=== PATIENT | male | born 1955 | race Caucasian/White ===

== ENCOUNTER 2023-05-03 19:38 | Emergency (ER) | payer OTHER, SELFPAY ==
[2023-05-03 20:16] VITALS: BP 171/93; PULSE 73; RESP 16; TEMP 36.6; O2SAT 100
--- NOTE | 2023-05-03 21:57 | ED.EXTPRO ---
HPI - Extremity Problem General Chief complaint: Extremity Problem,Nontraumatic Stated complaint: leg infection Time Seen by Provider: 05/03/23 21:25 History of Present Illness HPI Narrative: patient presents the emergency department with concern for cellulitis of his left lower extremity. He sustained a traumatic injury to the left lower extremity 40 years ago from a steel accident. He has a pin in place. Decreased blood flow chronically as result. He hit his leg on a grandchild bike peg 2 weeks ago. Resulting in persistent drainage around the old wound site. He notes leg was very erythematous and swollen. He kept it elevated. He is concerned because it has not healed yet. No current yellowish drainage. Beefy granulation tissue noted that he is concerned about her reassured that it is normal. Denies history of peripheral vascular disease or diabetic neuropathy. Strong pulse present Related Data Allergies Allergy/AdvReac Type Severity Reaction Status Date / Time codeine Allergy Nausea and Verified 05/03/23 21:44 Vomiting Review of Systems Review of Systems: review of systems negative except as documented in HPI Exam Narrative: GENERAL: Well-appearing, well-nourished, and in no acute distress. HEAD: Normocephalic, atraumatic. EYES: EOMI. ENT: Nares clear, no rhinorrhea or epistaxis. Mucous membranes moist. NECK: Supple. CHEST: . No respiratory distress. HEART: Regular rate and rhythm. ABDOMEN: not evaluated EXTREMITIES: Normal range of motion. No edema. SKIN: Warm, dry, no rash. granulation tissue left lower extremity without signs of cellulitis, no warmth no streaking NEURO: No focal deficits. Alert and oriented x3. PSYCH: Normal mood and affect. Course Vital Signs Vital signs: Vital Signs Temperature 36.6 C 05/03/23 20:16 Pulse Rate 73 05/03/23 20:16 Respiratory Rate 16 05/03/23 20:16 Blood Pressure 171/93 H 05/03/23 20:16 Pulse Oximetry 100 05/03/23 20:16 Oxygen Delivery Room Air 05/03/23 20:16 Temperature 36.6 C 05/03/23 20:16 Pulse Rate 73 05/03/23 20:16 Respiratory Rate 16 05/03/23 20:16 Blood Pressure 171/93 H 05/03/23 20:16 Pulse Oximetry 100 05/03/23 20:16 Oxygen Delivery Room Air 05/03/23 20:16 Discharge Plan Discharge Clinical Impression: Cellulitis Qualifiers: Site of cellulitis: extremity Site of cellulitis of extremity: lower extremity Laterality: left Qualified Code(s): L03.116 - Cellulitis of left lower limb Patient Disposition: Home, Self-Care Condition: Stable Instructions: Antibiotic Form, Cellulitis (ED), Chronic Wounds (ED) Additional Instructions: keep leg elevated as much as possible keep wound clean antibiotic ointment twice a day finished doxycycline follow-up with your primary care provider to ensure full wound healing Prescriptions: New doxycycline monohydrate 100 mg capsule 100 mg PO BID Qty: 14 0RF Follow-up/Referrals: PHYSICIAN NOT ON STAFF,NONSTAFF [Primary Care Provider] - Time of Disposition: 22:01
[2023-05-03] MEDS: DOXYCYCLINE HYCLATE 100 MG TABLET PO (22:11)
[2023-05-03 22:16] VITALS: BP 186/112; PULSE 99; RESP 16; TEMP 36.4; O2SAT 98
== END 2023-05-03 22:17 | disposition home or self-care (01) ==
PROVIDERS: Emergency Provider Emergency Medicine
DX: L03.116 Cellulitis of left lower limb (principal)
CPT/HCPCS: 99283; A9270

== ENCOUNTER 2024-07-21 11:17 | Outpatient (CLI) | payer OTHER, SELFPAY ==
[2024-07-21 11:44] LABS: Hematocrit 43.5 % (42.0-52.0); Hemoglobin 14.5 g/dL (14.0-18.0); Mean Corpuscular HGB Conc 33.3 g/dl (32-36); Mean Corpuscular Hemoglobin 29.4 pg (26-34); Mean Corpuscular Volume 88.1 fl (80-100); Platelet Count Result 152 k/mm3 (150-375); Red Blood Count 4.94 M/mm3 (4.6-6.20); Red Cell Distribution Width 12.2 % (11.5-14.5); White Blood Count 5.4 K/mm3 (4.5-10.0)
[2024-07-21 12:15] LABS: Alanine Aminotransferase 61 U/L (6-50); Alkaline Phosphatase 80 U/L (38-126); Anion Gap 7 mmol/L (4-12); Aspartate Amino Transferase 44 U/L (17-59); Bilirubin,Total 0.8 mg/dL (0.2-1.3); Blood Urea Nitrogen 14 mg/dL (9-20); Calcium 8.9 mg/dL (8.4-10.2); Carbon Dioxide 29 mmol/L (22-30); Chloride 102 mmol/L (98-107); Cholesterol 136 mg/dL (0-200); Estimated Glomerular Filt Rate > 60; Glucose 112 mg/dL (65-110); HDL Direct 61 mg/dL; Sodium 138 mmol/L (137-145); Triglycerides 74 mg/dL (<150)
[2024-07-21 12:26] LABS: LDL Cholesterol Direct 47 mg/dL
[2024-07-21 12:45] LABS: Prostate Specific Antigen 1.2 ng/mL (< OR = 4.0)
== END 2024-07-21 11:18 | disposition home or self-care (01) ==
LOC: ANHLAB 11:20
PROVIDERS: PCP Nurse Practitioner; Visit Provider Nurse Practitioner
DX: Z12.5 Encounter for screening for malignant neoplasm of prostate (principal); I10 Essential (primary) hypertension
CPT/HCPCS: 36415; 80053; 80061; 84153; 85027; G0103

== ENCOUNTER 2024-12-27 20:13 | Emergency (ER) | payer OTHER, MEDICAID, SELFPAY ==
--- NOTE | ~2024-12-27 | XR_ITS ---
HISTORY: edema to middle and lateral side COMPARISON: None TECHNIQUE: 2 views of the left tibia and fibula were performed FINDINGS: No acute or subacute fracture. Medial tibiofemoral joint space narrowing is present, incompletely evaluated. Fixation hardware within the distal tibia. Evidence of prior fracture deformity within the distal tibia and fibula with bony remodeling. Soft tissues are markedly edematous without radiopaque foreign body or significant calcification. IMPRESSION: Significant soft tissue swelling, without acute fracture or dislocation within the left tibia and fib enrique, as detailed above. Reviewed, dictated and finalized at location A. IMPRESSION: Significant soft tissue swelling, without acute fracture or dislocation within the left tibia and fibula, as detailed above.
--- NOTE | ~2024-12-27 | US_ITS ---
EXAMINATION: US venous doppler [facility] DATE: 12/27/2024 21:41 INDICATION: Edema and discoloration TECHNIQUE: Grayscale ultrasound images without and with compression and Doppler ultrasound images of the left lower extremity veins were obtained. COMPARISON: None. FINDINGS: The visualized portions of left common femoral vein, profunda (deep) femoral vein, femoral vein, popl iteal vein, peroneal veins, posterior tibial veins, and greater saphenous vein outflow are patent. IMPRESSION: 1. No deep venous thrombosis. Reviewed, dictated and finalized at location A.
[2024-12-27 20:46] VITALS: BP 155/66; PULSE 67; RESP 16; TEMP 36.8; O2SAT 99
[2024-12-27 22:29] VITALS: BP 150/77; PULSE 63; RESP 18; O2SAT 98
[2024-12-28] VITALS: BP 146/74; PULSE 64; RESP 18; O2SAT 100
--- NOTE | 2024-12-28 01:14 | ED_ITS ---
HPI - Extremity Problem General Chief complaint: Extremity Problem,Nontraumatic Stated complaint: edema left leg Time Seen by Provider: 12/28/24 00:48 Source: patient Mode of arrival: ambulatory Limitations: no limitations History of Present Illness HPI Narrative: Patient presents with concern for left lower leg edema for the past 2 weeks. He has a previous injury/accident that he sustained at work in 1979 that left him with hardware and in general his leg discolored and malformed. He states he previously wore compression stockings around the time of though surgeries but does not routinely wear them since. Denies being on anticoagulation or aspirin although he does take blood pressure medication. He notes that because of his injury he tends to favor his right foot. He states that there are no paresthesias and he only really has pain if he is on it for fair amount of time in which case it is not necessarily a pain only that it gets tight.Has not taken any pain medications. Denies any fevers or chills. No shortness of breath. Says he has bad circulation but denies having evaluation for this or seeing vascular surgeon or having a diagnosis of peripheral vascular disease/peripheral arterial disease, etc.. Confirms his primary care provider is Rogelio Phillip. Related Data Allergies Allergy/AdvReac Type Severity Reaction Status Date / Time codeine Allergy Nausea and Verified 12/27/24 20:46 Vomiting PMF Past Medical History Medical History Essential hypertension BMI 40.0-44.9, adult Surgical History Surgical History History of tonsillectomy History of surgery on lower extremity Social History Social History Smoking status: Never smoker Second hand tobacco smoke exposure: Yes Alcohol intake: former Substance use: never Substance use type: does not use Do You Feel Safe in your Home?: Yes Lack of Transportation: No Lack of Food: Never True Current Housing: I Have Housing Concerned About Future Housing: No Difficulty Paying Gas/Electric Bills: No Difficulty Paying for Meds: No Currently Unemployed: No Education: High School Diploma/GED Difficulty w/ Childcare or Family Care: No Living arrangements: alone Occupation/Education: occupation 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 Gender identity (if verbalized by the patient): Male Exam 2 Narrative: GENERAL: Well-appearing, well-nourished, and in no acute distress. HEAD: Normocephalic, atraumatic. EYES: Non injected, non icteric ENT: Nares clear, no rhinorrhea or epistaxis. Gross auditory acuity intact. NECK: Supple. No meningismus. CHEST: Speaking in full sentences. No respiratory distress. HEART: Regular rate and rhythm. Strong palpable left DP pulse. ABDOMEN: Soft, nondistended. EXTREMITIES: Normal range of motion. Lower extremity edema throughout the calf/vigil. Patient has significant amount superficial artery his and varicose veins present throughout bilateral feet. Evidence of venous stasis particularly on bilateral anterior shins. Left anteromedial lower extremity is markedly disfigured postsurgically but without evidence of erythema or induration. No drainage. SKIN: Warm, dry NEURO: No focal deficits. Alert and oriented. Answering questions. Following commands. Normal speech without aphasia or dysarthria. 5/5 strength with dorsiflexion plantar flexion. PSYCH: Normal mood and affect. Course Vital Signs Vital signs: Vital Signs Temperature 98.2 F 12/27/24 20:46 Pulse Rate 67 12/27/24 20:46 Respiratory Rate 16 12/27/24 20:46 Blood Pressure 155/66 H 12/27/24 20:46 Pulse Oximetry 99 12/27/24 20:46 Oxygen Delivery Room Air 12/27/24 20:46 Temperature 98.2 F 12/27/24 20:46 Pulse Rate 66 12/28/24 03:03 Respiratory Rate 18 12/28/24 03:03 Blood Pressure 148/86 H 12/28/24 03:03 Pulse Oximetry 100 12/28/24 03:03 Oxygen Delivery Room Air 12/27/24 22:29 MDM - Extremity (Nontraumatic) MDM Narrative Medical decision making narrative: Patient presents with concern for left lower extremity edema. History of surgical repair on this extremity in 1979 after an accident at work that the left his mid calf/vigil discolored and malformed. In the emergency department he is afebrile with vital signs notable for hypertension. We discussed likely etiologies his symptoms and that is imaging had been negative but would proceed with labs though ultimately suspect they will not reveal the cause. Very mild hypokalemia ; oral repletion ordered. Mild normocytic anemia. Also mild thrombocytopenia. BMP and CPK acceptable . Manuel has evidence of venous stasis and I suspect that this is ultimately etiology. He has palpable pulse. I do recommend that he followed up with primary care provider for further evaluation and management. Differential Diagnosis Differential diagnosis: Likely cellulitis, superficial thrombophlebitis, deep vein thrombosis of lower extremity and other (Considered osteomyelitis though seems less likely. Symptomatic anemia, electrolyte abnormalities, rhabdomyolysis, acute heart failure, lymphedema, considered acute ischemic limb but not likely; more likely venous stasis/peripheral vascular disease/peripheral arterial disease.) Lab Data Attestation: I reviewed the patient's lab results. 12/28/24 02:07 12/28/24 02:07 Labs: Lab Results 12/28/24 Range/Units 02:07 WBC 6.2 (4.5-10.0) K/mm3 RBC 4.54 L (4.6-6.20) M/mm3 Hgb 13.3 L (14.0-18.0) g/dL Hct 40.2 L (42.0-52.0) % MCV 88.5 (80-100) fl MCH 29.3 (26-34) pg MCHC 33.1 (32-36) g/dl RDW 12.2 (11.5-14.5) % Plt Count 144 L (150-375) k/mm3 MPV 9.8 (7.4-10.4) fl Immature Gran % (Auto) 1.8 H (0-0.5) % Neut % (Auto) 56.0 (45.5-73.1) % Lymph % (Auto) 28.2 (18.3-44.2) % [place] % (Auto) 11.6 H (2.6-8.5) % Eos % (Auto) 2.1 (0-4.4) % Baso % (Auto) 0.3 (0.2-1.2) % Lymph # (Auto) 1.75 (0.9-3.2) K/mm3 [place] # (Auto) 0.7 H (0.1-0.6) K/mm3 Eos # (Auto) 0.1 (0-0.3) K/mm3 Baso # (Auto) 0.0 (0.0-0.1) K/mm3 Abs Immat Gran (auto) 0.11 H (0.00-0.031) K/mm3 Absolute Neuts (auto) 3.5 (1.3-6.7) K/mm3 Absolute Nucleated RBC 0.000 (0.0-0.012) K/mm3 Nucleated RBC % 0.0 (0.0-0.2) % Sodium 134 L (137-145) mmol/L Potassium 3.3 L (3.4-5.0) mmol/L Chloride 99 (98-107) mmol/L Carbon Dioxide 29 (22-30) mmol/L Anion Gap 6 (4-12) mmol/L BUN 19 (9-20) mg/dL Creatinine 1.03 (0.7-1.3) mg/dL Estim Creat Clear Calc 87 ml/min Estimated GFR > 60 (59 - ) Glucose 115 H (65-110) mg/dL Calcium 9.0 (8.4-10.2) mg/dL Magnesium 1.8 (1.6-2.3) mg/dL Total Creatine Kinase 119 (55-170) U/L NT-Pro-B Natriuret Pep 104 H (19.9-100) pg/mL Imaging Data Radiologist's impression: Impressions Tibia/Fibula X-Ray 12/27/24 21:53 IMPRESSION: Significant soft tissue swelling, without acute fracture or dislocation within the left tibia and fibula, as detailed above. Venous Doppler Study 12/27/24 21:53 IMPRESSION: 1. No deep venous thrombosis. Discharge Plan Discharge Clinical Impression: Stasis edema of left lower extremity, Hypokalemia, Normocytic anemia, Thrombocytopenia Patient Disposition: Home Condition: Stable Instructions: Antibiotic Form, Stasis Dermatitis (ED), Venous Insufficiency (DC) Additional Instructions: As we discussed, this is likely related to poor circulation and venous stasis / peripheral vascular disease. Follow-up with primary care provider. Continue taking your medications as prescribed. Return to the emergency department any new or worsening symptoms. Acetaminophen/Tylenol (maximum 4000 mg per day) is safe to take with NSAIDs (ibuprofen/Motrin) for pain relief. Patient Language: Mohawk Prescriptions: No Action amlodipine [Norvasc] 10 mg tablet 10 mg PO DAILY Qty: 30 5RF valsartan-hydrochlorothiazide 160-12.5 mg tablet 1 tablet PO DAILY Qty: 30 5RF lansoprazole 15 mg capsule,delayed release(DR/EC) 15 mg PO DAILY Qty: 30 5RF Follow-up/Referrals: Rogelio Phillip APRN [Primary Care Provider] - Stand Alone Forms: Work/School Release IP Time of Disposition: 02:53
[2024-12-28 01:15] VITALS: BP 146/79; PULSE 62; RESP 18; O2SAT 98
[2024-12-28 02:12] LABS: Hematocrit 40.2 % (42.0-52.0); Hemoglobin 13.3 g/dL (14.0-18.0); Immature Granulocyte Percent A 1.8 % (0-0.5); Lymphocytes Absolute Auto 1.75 K/mm3 (0.9-3.2); Mean Corpuscular HGB Conc 33.1 g/dl (32-36); Mean Corpuscular Hemoglobin 29.3 pg (26-34); Mean Corpuscular Volume 88.5 fl (80-100); Nucleated Red Blood Cells Absolute Auto 0.000 K/mm3 (0.0-0.012); Nucleated Red Blood Cells Perc 0.0 % (0.0-0.2); Platelet Count Result 144 k/mm3 (150-375); Red Blood Count 4.54 M/mm3 (4.6-6.20); White Blood Count 6.2 K/mm3 (4.5-10.0)
[2024-12-28 02:33] LABS: Anion Gap 6 mmol/L (4-12); Blood Urea Nitrogen 19 mg/dL (9-20); Calcium 9.0 mg/dL (8.4-10.2); Carbon Dioxide 29 mmol/L (22-30); Chloride 99 mmol/L (98-107); Estimated CRCL calculation 87 ml/min; Estimated Glomerular Filt Rate > 60; Glucose 115 mg/dL (65-110); Magnesium 1.8 mg/dL (1.6-2.3); Potassium 3.3 mmol/L (3.4-5.0); Sodium 134 mmol/L (137-145)
[2024-12-28 02:41] LABS: NT Pro B Type Natriuretic Pept 104 pg/mL (19.9-100)
[2024-12-28 02:46] LABS: Creatine Kinase 119 U/L (55-170)
[2024-12-28] MEDS: POTASSIUM BICARBONATE 25 MEQ TABEF PO (02:50)
[2024-12-28 03:03] VITALS: BP 148/86; PULSE 66; RESP 18; O2SAT 100
== END 2024-12-28 03:04 | disposition home or self-care (01) ==
PROVIDERS: Emergency Provider Student in an Organized Health Care Education/Training Program; PCP Nurse Practitioner
DX: R60.0 Localized edema (principal); D64.9 Anemia, unspecified; D69.6 Thrombocytopenia, unspecified; E87.6 Hypokalemia; I10 Essential (primary) hypertension; Z77.22 Contact with and (suspected) exposure to environmental tobacco smoke (acute) (chronic)
CPT/HCPCS: 36415; 73590; 80048; 82550; 83735; 83880; 85025; 93971; 99284; A9270

== ENCOUNTER 2025-03-30 08:47 | Outpatient (CLI) | payer OTHER, MEDICAID, SELFPAY ==
--- NOTE | ~2025-03-30 | US_ITS ---
EXAM/PROCEDURE: US arterial ankle brachial ind HISTORY: I73.9 - Peripheral vascular disease, unspecified COMPARISON: None available. TECHNIQUE: GAY exam FINDINGS: Right and left brachial pressure readings were 134 at 149 respectively. Right and left posterior tibial pressure readings are 178 and 182 Right and left dorsalis pedis pressure readings are 145 and 179 Right and left great toe pressure readings are 142 and 196 Right and left ABIs are 1.19 and 1.22 Right and left TBI's are 0.95 and 1.32 Plethysmography for the posterior tibial region appears grossly normal. IMPRESSION: Borderline elevation of ABIs which could be associated with calcific or diabetic vasculopathy. Reviewed, dictated and finalized at location A. [employer] IMPRESSION: Borderline elevation of ABIs which could be associated with calcific or diabeti c vasculopathy.
== END 2025-03-30 08:48 | disposition home or self-care (01) ==
PROVIDERS: PCP Nurse Practitioner; Visit Provider Nurse Practitioner
DX: I73.9 Peripheral vascular disease, unspecified (principal)
CPT/HCPCS: 93922